=== PATIENT | male | born 1950 | race Caucasian/White ===

== ENCOUNTER 2025-01-19 12:18 | Emergency (ER) | payer MEDICARE, OTHER, SELFPAY ==
[2025-01-19 12:21] VITALS: BP 156/79
--- NOTE | 2025-01-19 12:37 | ED.GENMED ---
History of Present Illness
General
Chief Complaint: Skin Surface Trauma
Source: patient
Exam Limitations: none
Time Seen by Provider: 01/19/25 12:34
Nursing documentation reviewed up to this point in time: agreed with
History of Present Illness
History of Present Illness:
74-year-old male presents emergency department today with concerns of laceration to his right infraorbital area following blunt trauma with a baseball. Patient reports he was playing baseball with his grandson he was 10 years old when the baseball
was thrown at his face which broke his sunglasses and he reports at the end of the sunglasses cut his skin. Patient does note some pain over the right side of his face where the injury occurred but denies any visual changes, denies any visual loss,
denies any headaches, denies any neck pain, denies any lightheadedness, dizziness. Patient did not lose consciousness. Patient did not fall. Patient denies any other injuries
Review of Systems
Review of Systems
All Other Systems: ROS reviewed and negative except as documented in HPI and ROS
Phy Exam
Physical Exam
Physical Exam:
General: Patient is well appearing and in no acute distress; non-toxic
Skin: 3 cm well approximated actively bleeding infra-orbital hematoma
Head: Right sided infraorbital hematoma with overlying laceration. TMJ joints intact bilaterally.
Eyes: Sclera non-icteric. EOMs intact. No proptosis.
Neck: No tenderness to palpation of the cervical spine
Cardiac: Regular rate
Pulm: Normal respiratory effort
Neuro: CN II-XII intact, no focal neurologic deficits.
Psychiatric: Appropriate mood and affect.
Course
Orders/Labs/Results
Orders:
Orders
01/19/25 12:41
CT Facial Bones W/o Iv Contras Urgent
Comment:
Reason For Exam: tender over the right zygomatic/maxilla, blunt tra
Tetanus/Diphth/Acelpertussis [Adacel] 0.5 ml IM .ONCE ONE
Vital Signs
Initial and Last Documented VS:
Initial Vital Signs
Temp Pulse Resp BP Pulse Ox
98.2 F 76 16 156/79 98
01/19/25 12:21 01/19/25 12:21 01/19/25 12:21 01/19/25 12:21 01/19/25 12:21
Last Documented Vital Signs
Temp Pulse Resp BP Pulse Ox
98.2 F 76 16 156/79 98
01/19/25 12:21 01/19/25 12:21 01/19/25 12:21 01/19/25 12:21 01/19/25 12:21
Procedures
Laceration Closure
right infraorbital area:
Status of Wound: clean
Size of Wound in cm: 3
Description of Wound Edges: sharp
Preparation: cleaned with saline
Type of Closure: Dermabond-skin glue
MDM/Problems Addressed
Differential Diagnosis Includes:
ddx include zygomatic fracture, laceration, abrasion, maxillary fracture
MDM/Problems Addressed:
74-year-old male with past medical history of spinal stenosis status post spinal fusion presents emergency department today with concerns of a right sided infraorbital laceration. Patient reports that he was hit in the face with a baseball when he
was playing catch with his grandson. Physical exam he is well-appearing no acute distress he does have a hematoma under the right orbit but no proptosis, normal extraocular movements. Laceration was repaired with glue. Tetanus was updated.
Patient stable for discharge.
*Pulse Oximetry
Patient hypoxic: no
*Critical Care Note
Total Time (30-74mins, 75-104mins- exclusive of procedures): Not Applicable
ED Attending Note
-
Portions of this chart may have been created with voice recognition software.� Occasional wrong word or��sound alike� substitutions may have occurred due to the inherent limitations of voice recognition software.
Discharge Plan
Departure
Patient Disposition: Home (Routine Discharge)
Date of Disposition: 01/19/25
Time of Disposition: 15:18
Patient with high blood pressure during this ER visit?: Yes
Condition: Good
Discharge Problem:
Laceration of face
Instructions: Laceration Repair With Glue (DC), Wound Care (DC), BLOOD PRESSURE
Referrals:
Miguel Turner MD [Family Provider] -
Activity Restrictions/Additional Instructions:
Your CT scan of the face was normal.
Your laceration was repaired with glue. Please keep the wound dry for 24 hours. After 24 hours, you can cleanse wound with mild soap and water, please do not use hydrogen peroxide, alcohol, Vaseline, or bacitracin over the wound as this will
dissolve the glue.
PLEASE RETURN EMERGENCY DEPARTMENT SHOULD YOU DEVELOP PURULENT DRAINAGE FROM THE WOUND, SURROUNDING REDNESS, CHEST PAIN, SHORTNESS OF BREATH, LIGHTHEADEDNESS, WEAKNESS, OR ANY OTHER SIGNS OR SYMPTOMS WORRISOME TO YOU
Interventions
Interventions:
*Risk Screen - Suicide Last Done: 01/19/25 12:21
*General Assessment Last Done: 01/19/25 12:54
*Neglect/Abuse Screening Last Done: 01/19/25 12:21
*ED- Fall Risk Assessment Last Done: 01/19/25 12:54
*ED COVID-19 Vaccine History Last Done: 01/19/25 12:54
*Nursing Disposition Last Done: 01/19/25 15:42
ED-Skin Assessment Last Done: 01/19/25 12:54
Discharge Date and Time
Discharge Date/Time: 01/19/25 15:43
Print Language: MALTESE
[2025-01-19] MEDS: ADACEL 0.5 ML IM (12:57)
== END 2025-01-19 15:43 | disposition home or self-care (01) ==
LOC: EMR 12:18
PROVIDERS: EMERGENCY PHYSICIAN Emergency Medicine; FAMILY PHYSICIAN Family Medicine
DX: S01.81XA Laceration without foreign body of other part of head, initial encounter (principal); W21.03XA Struck by baseball, initial encounter; Y93.64 Activity, baseball; Z98.1 Arthrodesis status
CPT/HCPCS: 99284; 12013; 70486; 90715